=== PATIENT | male | born 1995 | race Caucasian/White ===

== ENCOUNTER 2018-12-01 17:54 | Emergency (ER) | payer SELFPAY ==
[~2018-12-01] VITALS: Ht 193 cm; Wt 93.0 kg
--- NOTE | 2018-12-01 18:00 | NUR ---
LFA, L TORSO AREA AND RLE WOUND FROM A DOG BITE. not utd to tetanus shot. Patient a/ox4, no distress noted. breathing even and unlabored. Patient's extremities covered at this time to apply pressure for bleeding. Will continue to monitor.
[2018-12-01] MEDS ORDERED: IBUPROFEN 600 MG TABLET PO ONE ×2 (18:21→18:30)
[2018-12-01] MEDS ORDERED: HYDROCODONE/APAP 10/325MG 1 EA TABLET ONE (18:21)
[2018-12-01] MEDS ORDERED: AMOX/CLAVULANATE 875 MG TABLET ONE (18:21)
[2018-12-01] MEDS ORDERED: LIDOCAINE 1%-EPI 1:100,000 20 ML VIAL ONE (18:22)
[2018-12-01] MEDS ORDERED: TDAP [DIPH/PERTUSSIS/TET] 0.5 ML VIAL IM ONE ×2 (18:22→18:30)
[2018-12-01] MEDS ORDERED: HYDROCODONE/APAP 10/325MG 1 EA TABLET PO ONE (18:30)
[2018-12-01] MEDS ORDERED: AMOX/CLAVULANATE 875 MG TABLET PO ONE (18:30)
[2018-12-01] MEDS ORDERED: LIDOCAINE 1%-EPI 1:100,000 20 ML VIAL TP ONE (18:30)
--- NOTE | 2018-12-01 19:33 | NUR ---
SUTURES ON LFA AND BACK BY QUANG JEFFERSON. PATIENT TOLERATED PROCEDURE WELL.
--- NOTE | 2018-12-01 19:34 | NUR ---
ENDORSED TO ED FOR SUZANNA.
--- NOTE | 2018-12-01 19:55 | NUR ---
EMT AT BEDSIDE FOR WOUND CARE.
[2018-12-01 20:23] VITALS: BP 132/61
--- NOTE | 2018-12-01 20:23 | NUR ---
Patient discharged to home in stable condition. Written and verbal after care instructions given. Patient verbalizes understanding of instruction. ambulatory with a steady gait
== END 2018-12-01 20:24 | disposition home or self-care (01) ==
LOC: ER 17:59
DX: S51.812A Laceration without foreign body of left forearm, initial encounter (principal); S31.119A Laceration without foreign body of abdominal wall, unspecified quadrant without penetration into peritoneal cavity, initial encounter; S20.411A Abrasion of right back wall of thorax, initial encounter; S71.151A Open bite, right thigh, initial encounter; Z23 Encounter for immunization; W54.0XXA Bitten by dog, initial encounter; Y93.89 Activity, other specified; Y92.89 Other specified places as the place of occurrence of the external cause; Y99.8 Other external cause status
CPT/HCPCS: 12004; 73090; 90471; 90715; 99284; A6403 ×2; J3490

== ENCOUNTER 2018-12-06 18:27 | Emergency (ER) | payer BC ==
[~2018-12-06] VITALS: Ht 195.6 cm; Wt 93.0 kg
[2018-12-06 20:10] VITALS: BP 127/88
== END 2018-12-06 20:22 | disposition home or self-care (01) ==
LOC: ER 18:27
DX: S51.812D Laceration without foreign body of left forearm, subsequent encounter (principal); S31.119D Laceration without foreign body of abdominal wall, unspecified quadrant without penetration into peritoneal cavity, subsequent encounter; S71.111D Laceration without foreign body, right thigh, subsequent encounter; Z48.00 Encounter for change or removal of nonsurgical wound dressing; W54.0XXD Bitten by dog, subsequent encounter

== ENCOUNTER 2018-12-14 10:12 | Emergency (ER) | payer BC ==
[~2018-12-14] VITALS: Ht 193 cm; Wt 93.0 kg
[2018-12-14 10:18] VITALS: BP 134/93
--- NOTE | 2018-12-14 10:27 | NUR ---
AT BEDSIDE FOR SUTURE REMOVAL.
--- NOTE | 2018-12-14 10:57 | NUR ---
Patient discharged to home in stable condition. Written and verbal after care instructions given. Patient verbalizes understanding of instruction.
== END 2018-12-14 10:58 | disposition home or self-care (01) ==
LOC: ER 10:12
DX: S51.812D Laceration without foreign body of left forearm, subsequent encounter (principal); S31.119D Laceration without foreign body of abdominal wall, unspecified quadrant without penetration into peritoneal cavity, subsequent encounter; W54.0XXD Bitten by dog, subsequent encounter